=== PATIENT | male | born 1980 | race Caucasian/White ===

== ENCOUNTER 2016-09-05 | Outpatient (CLI) | payer MEDICAID, OTHER | END 2016-09-05 13:30 | disposition home or self-care (01) | DX: I49.8 Other specified cardiac arrhythmias (principal) ==

== ENCOUNTER 2017-07-17 17:37 | Outpatient (CLI) | payer OTHER ==
[2017-07-17 13:47] LABS: HEMOGLOBIN A1C 0.75 g/dL
== END 2017-07-17 17:38 | disposition home or self-care (01) ==
LOC: LAB.N 17:37
PROVIDERS: ATTEND Nurse Practitioner Gerontology
DX: R73.9 Hyperglycemia, unspecified (principal); E87.6 Hypokalemia
CPT/HCPCS: 36415; 83036; 84132

== ENCOUNTER 2017-11-16 23:42 | Outpatient (CLI) | payer OTHER ==
[2017-11-16 19:28] LABS: HB2 TOTAL 16.5 g/dL; HEMOGLOBIN A1C 0.71 g/dL; HEMOGLOBIN A1C % 6.1 % (4.6-6.2)
== END 2017-11-16 23:43 | disposition home or self-care (01) ==
LOC: LAB.N 23:42
PROVIDERS: ATTEND Nurse Practitioner Gerontology
DX: R73.9 Hyperglycemia, unspecified (principal)
CPT/HCPCS: 36415; 83036

== ENCOUNTER 2019-09-29 11:06 | Outpatient (CLI) | payer OTHER ==
[2019-09-29 18:41] LABS: BASOPHILS # (AUTO) 0.1 10^3/uL (0.0-0.1); BASOPHILS % (AUTO) 1.1 %; EOSINOPHILS # (AUTO) 0.1 10^3/uL (0.0-0.7); EOSINOPHILS % (AUTO) 0.8 %; HGB - HEMOGLOBIN 15.9 g/dL (14.0-18.0); LYMPHOCYTES # (AUTO) 2.4 10^3/uL (1.5-3.5); MEAN CORPUSCULAR HEMOGLOBIN 30.6 pg (27.0-31.0); MEAN CORPUSCULAR HGB CONC 33.8 g/dL (32.0-36.0); MEAN CORPUSCULAR VOLUME 90.6 fL (80.0-94.0); MEAN PLATELET VOLUME 9.9 fL (7.4-11.4); MONOCYTES # (AUTO) 0.4 10^3/uL (0.0-1.0); MONOCYTES % (AUTO) 6.2 %; NEUTROPHILS # (AUTO) 4.1 10^3/uL (1.5-6.6); NEUTROPHILS % (AUTO) 57.6 %; PLT - PLATELET COUNT 247 10^3/uL (130-450); RED BLOOD COUNT 5.19 10^6/uL (4.70-6.10); RED CELL DISTRIBUTION WIDTH 12.6 % (12.0-15.0); WHITE BLOOD COUNT 7.1 x10^3/uL (4.8-10.8)
[2019-09-29 19:14] LABS: ALBUMIN 4.5 g/dL (3.2-5.5); ALBUMIN/GLOBULIN RATIO 1.4 (1.0-2.2); ALKALINE PHOSPHATASE 58 IU/L (42-121); ALT ALANINE AMINOTRANSFERASE 30 IU/L (10-60); AST ASPARTATE AMINOTRANSFERASE 26 IU/L (10-42); BILIRUBIN,TOTAL 0.9 mg/dL (0.2-1.0); BUN - BLOOD UREA NITROGEN 19 mg/dL (6-20); CALCIUM 9.4 mg/dL (8.5-10.3); CARBON DIOXIDE - CO2 30 mmol/L (21-32); CHLORIDE 96 mmol/L (101-111); CHOL/HDL RATIO 5.9 (<5.0); CHOLESTEROL 261 mg/dL; CREATININE 1.1 mg/dL (0.6-1.2); GFR - MDRD 75 (>89); GLUCOSE 158 mg/dL (70-100); HDL CHOLESTEROL 44 mg/dL; LDL CHOLESTEROL,CALCULATED 183 mg/dL; LDL/HDL RATIO 4.2 (<3.6); SODIUM 138 mmol/L (135-145); TOTAL PROTEIN 7.7 g/dL (6.7-8.2); VLDL CHOLESTEROL 34 mg/dL
[2019-09-29 19:31] LABS: HB2 TOTAL 16.5 g/dL; HEMOGLOBIN A1C 0.8 g/dL; HEMOGLOBIN A1C % 6.6 % (4.6-6.2)
== END 2019-09-29 23:59 | disposition home or self-care (01) ==
LOC: LAB.N 11:06
PROVIDERS: ATTEND Nurse Practitioner Gerontology
DX: E87.6 Hypokalemia (principal); I10 Essential (primary) hypertension; R73.9 Hyperglycemia, unspecified
CPT/HCPCS: 36415; 80053; 80061; 83036; 83721; 85025

== ENCOUNTER 2019-11-15 08:00 | Outpatient (CLI) | payer OTHER | END 2019-11-15 23:59 | disposition home or self-care (01) | LOC: LAB.N 08:00 | PROVIDERS: ATTEND Nurse Practitioner Gerontology | DX: R35.0 Frequency of micturition (principal); R35.1 Nocturia | CPT/HCPCS: 36415; 84153 ==

== ENCOUNTER 2021-02-14 08:00 | Outpatient (CLI) | payer BC, OTHER ==
[2021-02-14 17:52] LABS: BASOPHILS # (AUTO) 0.1 10^3/uL (0.0-0.1); BASOPHILS % (AUTO) 0.7 %; EOSINOPHILS # (AUTO) 0.1 10^3/uL (0.0-0.7); EOSINOPHILS % (AUTO) 0.9 %; HCT - HEMATOCRIT 46.7 % (42.0-52.0); HGB - HEMOGLOBIN 15.3 g/dL (14.0-18.0); LYMPHOCYTES # (AUTO) 2.8 10^3/uL (1.5-3.5); LYMPHOCYTES % (AUTO) 35.9 %; MEAN CORPUSCULAR HEMOGLOBIN 31.2 pg (27.0-31.0); MEAN CORPUSCULAR HGB CONC 32.8 g/dL (32.0-36.0); MEAN CORPUSCULAR VOLUME 95.1 fL (80.0-94.0); MEAN PLATELET VOLUME 10.2 fL (7.4-11.4); MONOCYTES # (AUTO) 0.4 10^3/uL (0.0-1.0); MONOCYTES % (AUTO) 5.7 %; NEUTROPHILS # (AUTO) 4.3 10^3/uL (1.5-6.6); NEUTROPHILS % (AUTO) 56.4 %; PLT - PLATELET COUNT 244 10^3/uL (130-450); RED BLOOD COUNT 4.91 10^6/uL (4.70-6.10); RED CELL DISTRIBUTION WIDTH 12.8 % (12.0-15.0); WHITE BLOOD COUNT 7.7 x10^3/uL (4.8-10.8)
[2021-02-14 18:11] LABS: ALBUMIN 4.5 g/dL (3.2-5.5); ALBUMIN/GLOBULIN RATIO 1.4 (1.0-2.2); ALKALINE PHOSPHATASE 65 IU/L (42-121); ALT ALANINE AMINOTRANSFERASE 29 IU/L (10-60); AST ASPARTATE AMINOTRANSFERASE 23 IU/L (10-42); BILIRUBIN,TOTAL 0.8 mg/dL (0.2-1.0); BUN - BLOOD UREA NITROGEN 15 mg/dL (6-20); CALCIUM 9.4 mg/dL (8.5-10.3); CARBON DIOXIDE - CO2 30 mmol/L (21-32); CHLORIDE 99 mmol/L (101-111); CHOL/HDL RATIO 5.5 (<5.0); CHOLESTEROL 278 mg/dL; CREATININE 0.9 mg/dL (0.6-1.2); GFR - MDRD 94 (>89); GLUCOSE 146 mg/dL (70-100); HDL CHOLESTEROL 51 mg/dL; LDL CHOLESTEROL,CALCULATED 178 mg/dL; LDL/HDL RATIO 3.5 (<3.6); SODIUM 138 mmol/L (135-145); TOTAL PROTEIN 7.8 g/dL (6.7-8.2); TRIGLYCERIDES 244 mg/dL; VLDL CHOLESTEROL 49 mg/dL
== END 2021-02-14 23:59 | disposition home or self-care (01) ==
LOC: LAB.WCP 08:00
PROVIDERS: ATTEND Family Medicine
DX: E87.6 Hypokalemia (principal); I10 Essential (primary) hypertension
CPT/HCPCS: 36415; 80053; 80061; 83721; 85025

== ENCOUNTER 2021-12-19 08:00 | Outpatient (CLI) | payer BC ==
[2021-12-19 11:12] LABS: BASOPHILS # (AUTO) 0.1 10^3/uL (0.0-0.1); BASOPHILS % (AUTO) 0.7 %; EOSINOPHILS # (AUTO) 0.1 10^3/uL (0.0-0.7); EOSINOPHILS % (AUTO) 0.7 %; HCT - HEMATOCRIT 46.5 % (42.0-52.0); HGB - HEMOGLOBIN 16.2 g/dL (14.0-18.0); LYMPHOCYTES # (AUTO) 3.1 10^3/uL (1.5-3.5); LYMPHOCYTES % (AUTO) 40.8 %; MEAN CORPUSCULAR HEMOGLOBIN 31.9 pg (27.0-31.0); MEAN CORPUSCULAR HGB CONC 34.8 g/dL (32.0-36.0); MEAN CORPUSCULAR VOLUME 91.5 fL (80.0-94.0); MEAN PLATELET VOLUME 9.4 fL (7.4-11.4); MONOCYTES # (AUTO) 0.5 10^3/uL (0.0-1.0); MONOCYTES % (AUTO) 6.1 %; NEUTROPHILS # (AUTO) 3.9 10^3/uL (1.5-6.6); NEUTROPHILS % (AUTO) 51.3 %; PLT - PLATELET COUNT 268 10^3/uL (130-450); RED BLOOD COUNT 5.08 10^6/uL (4.70-6.10); RED CELL DISTRIBUTION WIDTH 12.7 % (12.0-15.0); WHITE BLOOD COUNT 7.7 x10^3/uL (4.8-10.8)
[2021-12-19 11:36] LABS: ALBUMIN 4.5 g/dL (3.2-5.5); ALBUMIN/GLOBULIN RATIO 1.3 (1.0-2.2); ALKALINE PHOSPHATASE 64 IU/L (42-121); ALT ALANINE AMINOTRANSFERASE 32 IU/L (10-60); AST ASPARTATE AMINOTRANSFERASE 25 IU/L (10-42); BILIRUBIN,TOTAL 0.9 mg/dL (0.2-1.0); BUN - BLOOD UREA NITROGEN 17 mg/dL (6-20); CALCIUM 9.2 mg/dL (8.5-10.3); CARBON DIOXIDE - CO2 30 mmol/L (21-32); CHLORIDE 97 mmol/L (101-111); CHOL/HDL RATIO 6.2 (<5.0); CHOLESTEROL 259 mg/dL; GFR - MDRD 83 (>89); GLUCOSE 167 mg/dL (70-100); HDL CHOLESTEROL 42 mg/dL; LDL CHOLESTEROL,CALCULATED 190 mg/dL; LDL/HDL RATIO 4.5 (<3.6); POTASSIUM 3.5 mmol/L (3.5-5.0); SODIUM 137 mmol/L (135-145); TOTAL PROTEIN 7.9 g/dL (6.7-8.2); TRIGLYCERIDES 135 mg/dL; VLDL CHOLESTEROL 27 mg/dL
[2021-12-19 11:47] LABS: THYROID STIMULATING HORMONE 0.94 uIU/mL (0.34-5.60)
== END 2021-12-20 12:54 | disposition home or self-care (01) ==
LOC: LAB 08:00
PROVIDERS: ATTEND Family Medicine
DX: I10 Essential (primary) hypertension (principal); E78.5 Hyperlipidemia, unspecified
CPT/HCPCS: 36415; 80053; 80061; 83721; 84443; 85025

== ENCOUNTER 2021-12-28 09:36 | Outpatient (CLI) | payer BC ==
[2021-12-28 09:58] LABS: CALCIUM 9.4 mg/dL (8.5-10.3); CREATININE 0.9 mg/dL (0.6-1.2); POTASSIUM 3.4 mmol/L (3.5-5.0)
[2021-12-28 13:11] LABS: ESTIMATED AVERAGE GLUCOSE 183 mg/dL (70-100)
== END 2021-12-28 09:37 | disposition home or self-care (01) ==
LOC: LAB 09:36
PROVIDERS: ATTEND Physician Assistant
DX: R73.01 Impaired fasting glucose (principal)
CPT/HCPCS: 36415; 80048; 83036

== ENCOUNTER 2022-01-21 17:00 | Outpatient (CLI) | payer BC ==
--- NOTE | 2022-01-22 16:53 | Ultrasound Report ---
PROCEDURE: Abdomen Limited INDICATIONS: UMBILICAL HERNIA TECHNIQUE: Real-time focused scanning was performed of the abdomen, with image documentation. COMPARISON: No pertinent prior study. FINDINGS: There is a partially reducible fat-containing umbilical hernia with a fascial defect measu ring approximately 1.3 cm. The hernia sac measures up to 2.1 cm. IMPRESSION: Partially reducible fat-containing periumbilical hernia with fascial defect measuring 1.3 cm. Reviewed by: Jey Xiong MD on 01/22/2022 4:52 PM PDT Approved by: Jey Xiong MD on 01/22/2022 4:52 PM PDT Station ID: [id number]
== END 2022-01-21 17:01 | disposition home or self-care (01) ==
LOC: DI 17:00
PROVIDERS: ATTEND Physician Assistant
DX: K42.9 Umbilical hernia without obstruction or gangrene (principal)

== ENCOUNTER 2022-05-22 08:24 | Day surgery (SDC) | payer BC ==
[2022-05-22] MEDS ORDERED: CEFAZOLIN 2G/50ML 0.9% NS 2 GM/50 ML BAG IV ONE (08:56)
[2022-05-22] MEDS ORDERED: LACTATED RINGERS 1,000 ML IV ONE ×2 (09:10→11:58)
--- NOTE | 2022-05-22 09:33 | ANESTHESIA ---
Pre-Anesthesia VS, & Labs - Diagnosis umbilical hernia - Procedure umbilical hernia repair Vital Signs: Temp Pulse Resp BP Pulse Ox O2 Flow Rate 36.2 C L 86 16 134/84 H 97 05/22/22 08:40 05/22/22 08:40 05/22/22 08:40 05/22/22 08:40 05/22/22 08:40 Height: 6 ft Weight (kg): 109.5 kg Body Mass Index: 32.7 BMI Classification: Obese - NPO >8 hours - Lab Results Current Lab Results: Laboratory Tests 05/22/22 08:47: POC Whole Bld Glucose 162 H Home Medications and Allergies Home Medications: Ambulatory Orders Propranolol [Inderal] 10 mg PO BID PRN 05/16/22 metFORMIN [Glucophage] 500 mg PO BIDWM 05/16/22 Chlorthalidone 25 mg PO DAILY 02/03/15 Sertraline [Zoloft] 100 mg PO DAILY 02/03/15 LORazepam [Ativan] 0.5 - 1 mg PO ONCE PRN 10/02/15 Propranolol [Inderal] 10 mg PO BID PRN 05/16/22 metFORMIN [Glucophage] 500 mg PO BIDWM 05/16/22 Allergies/Adverse Reactions: Allergies Allergy/AdvReac Type Severity Reaction Status Date / Time No Known Drug Allergies Allergy Verified 01/03/14 08:14 Anes History & Medical History - Anesthetic History Anesthesia Complications: reports: No previous complications Family history of Anesthesia Complications: Denies Family history of Malignant Hyperthermia: Denies - Medical History Cardiovascular: reports: Hypertension, High cholesterol Pulmonary: reports: None Gastrointestinal: reports: Hemorrhoids Urinary: reports: None Musculoskeletal: reports: None Endocrine/Autoimmune: reports: Type 2 diabetes Skin: reports: None Smoking Status: Never smoker Exam General: Alert, Oriented x3, Cooperative Dental: WNL Mouth Openin Fingerbreadth Neck Mobility: Normal Mallampati classification: II Thyromental Distance: 4-6 cm Respiratory: Lungs clear Cardiovascular: Regular rate Plan Anesthesia Type: General Consent for Procedure(s) Verified and Reviewed: Yes Code Status: Attempt Resuscitation ASA classification: 2-Mild systemic disease Is this case an emergency?: No
[2022-05-22] MEDS ORDERED: BUPIVACAINE 0.25% PF 10 ML VIAL ONE ×2 (09:48)
[2022-05-22] MEDS ORDERED: SUGAMMADEX 200 MG/2 ML VIAL IVP ONE (09:56)
[2022-05-22] MEDS ORDERED: ROCURONIUM 50 MG/5 ML VIAL ONE (09:56)
[2022-05-22] MEDS ORDERED: ONDANSETRON 4 MG/2 ML VIAL ONE (09:56)
[2022-05-22] MEDS ORDERED: KETOROLAC 30 MG/ML VIAL ONE (09:56)
--- NOTE | 2022-05-22 10:10 | HISTORY & PHYSICAL EXAMINATION ---
Chief Complaint - Chief Complaint Chief Complaint: umbilical hernia History of Present Illness - History Obtained From Records Reviewed: yes History obtained from: pt Exam Limitations: none - History of Present Illness HPI Comment/Other: umbilical hernia. getting bigger and more painful History - Past Medical History Cardiovascular: reports: Hypertension, High cholesterol Respiratory: reports: None Endocrine/Autoimmune: reports: Type 2 diabetes GI: reports: Hemorrhoids : reports: None HEENT: reports: Chronic vision loss, Chronic hearing loss Psych: reports: Depression, Anxiety, Panic attacks, Post traumatic stress disorder Musculoskeletal: reports: None Derm: reports: None MRSA Hx?: No - POLST Patient has POLST: No Meds/Allgy - Home Medications Home Medications: Ambulatory Orders Medication Instructions Recorded Confirmed Chlorthalidone 25 mg PO DAILY 02/03/15 05/16/22 Sertraline [Zoloft] 100 mg PO DAILY 02/03/15 05/16/22 LORazepam [Ativan] 0.5 - 1 mg PO ONCE PRN 10/02/15 05/16/22 Propranolol [Inderal] 10 mg PO BID PRN 05/16/22 05/16/22 metFORMIN [Glucophage] 500 mg PO BIDWM 05/16/22 05/16/22 - Allergies Allergies/Adverse Reactions: Allergies Allergy/AdvReac Type Severity Reaction Status Date / Time No Known Drug Allergies Allergy Verified 01/03/14 08:14 Review of Systems - Other Findings Other Findings: 10 pt ros as above otherwise unremarkable Exam - Vital Signs Reviewed Vital Signs: Yes Vital Signs: Vital Signs x48h Temp Pulse Resp BP Pulse Ox 05/22/22 08:40 36.2 C L 86 16 134/84 H 97 - Physical Exam General Appearance: positive: No acute distress, Alert Eyes Bilateral: positive: PERRL, EOMI ENT: positive: No signs of dehydration Neck: positive: No JVD Respiratory: positive: Breath sounds nml Cardiovascular: positive: Regular rate & rhythm Abdomen: positive: Non-tender, Other (3 cm umbilical hernia) Neurologic/Psychiatric: positive: Oriented x3 Conclusion/Plan - Problem List (1) Umbilical hernia Conclusion/Plan: plan open repair with mesh. parq held and consent obtained
[2022-05-22] MEDS ORDERED: MIDAZOLAM 2 MG/2 ML VIAL ONE (10:22)
[2022-05-22] MEDS ORDERED: fentaNYL 100 MCG/2 ML VIAL ONE (10:22)
[2022-05-22] MEDS ORDERED: BUPIVACAINE 0.25% PF 30 ML VIAL SUBQ ONE (10:54)
[2022-05-22] MEDS ORDERED: DEXAMETHASONE 4 MG/ML VIAL ONE (11:01)
[2022-05-22] MEDS ORDERED: PROPOFOL 200 MG/20 ML VIAL IVP ONE (11:45)
[2022-05-22] MEDS ORDERED: HYDROcod/ACETAM 5/325 MG TABLET PO PRN (12:00)
--- NOTE | 2022-05-22 12:06 | OPERATIVE REPORT ---
Operative Report - General Procedure Date: 05/22/22 Planned Procedure: open umbilical hernia repair with mesh Pre-Op Diagnosis: umbilical hernia Procedure Performed: open umbilical hernia repair with mesh Post Op Diagnosis: umbilical hernia - Procedure Note Primary Surgeon: irena weber Anesthesia Technique: General ET tube, Local Pathology: none Estimated Blood Loss (mL): 2 Drain/Tube Type: Other (none) Indications: painful hernia bulge Findings: 2.5 cm hernia Complications: none - Other Other Information/Narrative: The patient was properly identified brought to the operating room and placed in supine position. Sequential compression devices were placed. General anesthesia was induced. The patient was prepped and draped in a sterile fashion and given preoperative antibiotics. Local anesthetic was given throughout the procedure. An infraumbilical incision was made. Dissection proceeded sharply. Subcutaneous tissue was mobilized away from the fascial defect by 2 to 3 cm in all directions. Umbilical skin was sharply excised away from the hernia sac or peritoneum. The peritoneum was then carefully released from the fascial defect edge with cutting current cautery. A preperitoneal space was developed for mesh placement. Polypropylene mesh was cut to size approximately 1.5 x 2.5 inches and placed preperitoneal. The mesh was secured with 9 interrupted 0 Ethibond sutures. The mesh lay in good position without tension. fascia was closed over the mesh with O ethibond. Subcutaneous tissue was reapproximated with interrupted 2-0 Vicryl suture. Umbilical skin was tacked back down to fascia with interrupted 2-0 Vicryl suture. Buried interrupted subdermal 3-0 Vicryl sutures were then placed. Skin was closed with a running 4-0 Monocryl subcuticular suture. Dressing was applied. Patient tolerated the procedure the procedure well was awakened and brought to recovery in good condition.
[2022-05-22] MEDS ORDERED: ePHEDrine 50 MG/ML VIAL IVP PRN (12:15)
[2022-05-22] MEDS ORDERED: fentaNYL 100 MCG/2 ML VIAL IVP PRN (12:15)
[2022-05-22] MEDS ORDERED: ONDANSETRON 4 MG/2 ML VIAL IVP PRN (12:15)
[2022-05-22] MEDS ORDERED: ATROPINE ABBOJECT 1 MG/10 ML SYRINGE IVP PRN (12:15)
[2022-05-22] MEDS ORDERED: HYDROmorphone 0.5 MG/0.5 ML SYRINGE IVP PRN (12:15)
[2022-05-22] MEDS ORDERED: NALOXONE 0.4 MG/ML VIAL IVP PRN (12:15)
[2022-05-22] MEDS ORDERED: MORPHINE 2 MG/ML CARPUJECT IVP PRN (12:15)
[2022-05-22 12:43] VITALS: BP 141/81
[2022-05-22] MEDS ORDERED: HYDROcod/ACETAM 5/325 MG TABLET ONE (12:54)
[2022-05-22] MEDS ORDERED: LACTATED RINGERS 1,000 ML IV SCH (13:00)
--- NOTE | 2022-05-22 13:26 | ANESTHESIA POST OP EVALUATION ---
Anesthesia Post Eval - Post Anesthesia Eval Vitals: Last Vital Signs Temp 36.8 C 05/22/22 12:42 Pulse 70 05/22/22 12:42 Resp 10 L 05/22/22 12:42 BP 141/81 H 05/22/22 12:42 Pulse Ox 95 05/22/22 12:42 O2 Flow Rate CV Function Including HR & BP: Stable Pain Control: Satisfactory Nausea & Vomiting: Negative Mental Status: Baseline Respiratory Status: Airway Patent Hydration Status: Satisfactory Anesthesia Complications: None
== END 2022-05-22 08:25 | disposition home or self-care (01) ==
LOC: SDS 08:24
PROVIDERS: ATTEND Surgery
DX: K42.9 Umbilical hernia without obstruction or gangrene (principal); E11.9 Type 2 diabetes mellitus without complications; E66.9 Obesity, unspecified; Z68.32 Body mass index [BMI] 32.0-32.9, adult; Z79.84 Long term (current) use of oral hypoglycemic drugs; I10 Essential (primary) hypertension; F41.9 Anxiety disorder, unspecified
CPT/HCPCS: 49585; A9270; C1781; J0690; J7120

== ENCOUNTER 2023-04-17 08:42 | Outpatient (CLI) | payer BC ==
[2023-04-17 09:19] LABS: BASOPHILS # (AUTO) 0.1 10^3/uL (0.0-0.1); BASOPHILS % (AUTO) 0.7 %; EOSINOPHILS # (AUTO) 0.1 10^3/uL (0.0-0.7); EOSINOPHILS % (AUTO) 1.8 %; HCT - HEMATOCRIT 44.4 % (42.0-52.0); LYMPHOCYTES # (AUTO) 1.9 10^3/uL (1.5-3.5); LYMPHOCYTES % (AUTO) 26.2 %; MEAN CORPUSCULAR HEMOGLOBIN 31.4 pg (27.0-31.0); MEAN CORPUSCULAR HGB CONC 33.8 g/dL (32.0-36.0); MEAN CORPUSCULAR VOLUME 92.9 fL (80.0-94.0); MEAN PLATELET VOLUME 9.3 fL (7.4-11.4); MONOCYTES # (AUTO) 0.6 10^3/uL (0.0-1.0); MONOCYTES % (AUTO) 8.4 %; NEUTROPHILS # (AUTO) 4.6 10^3/uL (1.5-6.6); NEUTROPHILS % (AUTO) 62.6 %; PLT - PLATELET COUNT 218 10^3/uL (130-450); RED BLOOD COUNT 4.78 10^6/uL (4.70-6.10); RED CELL DISTRIBUTION WIDTH 12.3 % (12.0-15.0); WHITE BLOOD COUNT 7.3 x10^3/uL (4.8-10.8)
[2023-04-17 09:38] LABS: ALBUMIN 4.2 g/dL (3.2-5.5); ALBUMIN/GLOBULIN RATIO 1.6 (1.0-2.2); ALKALINE PHOSPHATASE 76 IU/L (42-121); ALT ALANINE AMINOTRANSFERASE 14 IU/L (10-60); AST ASPARTATE AMINOTRANSFERASE 14 IU/L (10-42); BILIRUBIN,TOTAL 0.5 mg/dL (0.2-1.0); BUN - BLOOD UREA NITROGEN 13 mg/dL (6-20); CALCIUM 9.3 mg/dL (8.5-10.3); CARBON DIOXIDE - CO2 32 mmol/L (21-32); CHLORIDE 101 mmol/L (101-111); CHOL/HDL RATIO 5.4 (<5.0); CHOLESTEROL 226 mg/dL; CREATININE 0.9 mg/dL (0.6-1.3); GFR - MDRD 93 (>89); GLUCOSE 174 mg/dL (74-104); HDL CHOLESTEROL 42 mg/dL; LDL CHOLESTEROL,CALCULATED 148 mg/dL; LDL/HDL RATIO 3.5 (<3.6); POTASSIUM 3.6 mmol/L (3.5-4.5); SODIUM 137 mmol/L (135-145); TOTAL PROTEIN 6.9 g/dL (6.4-8.9); TRIGLYCERIDES 178 mg/dL (48-352); VLDL CHOLESTEROL 36 mg/dL
[2023-04-17 09:41] LABS: CREATININE,URINE 131.8 mg/dL; MICROALBUM/CREATININE RATIO,UR 5.3 ug/mg (<30.0); MICROALBUMIN,URINE 0.7 mg/dL
[2023-04-17 09:53] LABS: THYROID STIMULATING HORMONE 1.44 uIU/mL (0.34-5.60)
[2023-04-17 11:24] LABS: ESTIMATED AVERAGE GLUCOSE 177 mg/dL (70-100); HEMOGLOBIN A1c% 7.8 % (4.27-6.07)
== END 2023-04-17 08:43 | disposition home or self-care (01) ==
LOC: LAB 08:42
PROVIDERS: ATTEND Physician Assistant
DX: E11.9 Type 2 diabetes mellitus without complications (principal); E78.5 Hyperlipidemia, unspecified
CPT/HCPCS: 36415; 80053; 80061; 82043; 82570; 83036; 83721; 84443; 85025

== ENCOUNTER 2023-08-06 06:35 | Outpatient (CLI) | payer BC ==
[2023-08-06 07:08] LABS: CALCIUM 9.7 mg/dL (8.5-10.3); CREATININE 0.9 mg/dL (0.6-1.3); POTASSIUM 3.8 mmol/L (3.5-4.5)
[2023-08-06 08:12] LABS: ESTIMATED AVERAGE GLUCOSE 183 mg/dL (70-100)
== END 2023-08-06 06:36 | disposition home or self-care (01) ==
LOC: LAB 06:35
PROVIDERS: ATTEND Physician Assistant
DX: E11.9 Type 2 diabetes mellitus without complications (principal)
CPT/HCPCS: 36415; 80048; 83036

== ENCOUNTER 2023-11-06 06:10 | Outpatient (CLI) | payer BC ==
[2023-11-06 06:37] LABS: CREATININE,URINE 234.6 mg/dL; MICROALBUMIN,URINE 2.1 mg/dL
[2023-11-06 06:41] LABS: BUN - BLOOD UREA NITROGEN 14 mg/dL (6-20); CALCIUM 9.6 mg/dL (8.5-10.3); CARBON DIOXIDE - CO2 33 mmol/L (21-32); CHLORIDE 99 mmol/L (101-111); CHOL/HDL RATIO 5.2 (<5.0); CHOLESTEROL 254 mg/dL; GFR - MDRD 82 (>89); GLUCOSE 202 mg/dL (74-104); HDL CHOLESTEROL 49 mg/dL; LDL CHOLESTEROL,CALCULATED 177 mg/dL; LDL/HDL RATIO 3.6 (<3.6); POTASSIUM 3.4 mmol/L (3.5-4.5); SODIUM 138 mmol/L (135-145); TRIGLYCERIDES 142 mg/dL (48-352); VLDL CHOLESTEROL 28 mg/dL
[2023-11-06 10:28] LABS: ESTIMATED AVERAGE GLUCOSE 189 mg/dL (70-100); HEMOGLOBIN A1c% 8.2 % (4.27-6.07)
== END 2023-11-06 06:11 | disposition home or self-care (01) ==
LOC: LAB 06:10
PROVIDERS: ATTEND Physician Assistant
DX: E11.65 Type 2 diabetes mellitus with hyperglycemia (principal)
CPT/HCPCS: 36415; 80048; 80061; 82043; 82570; 83036; 83721

== ENCOUNTER 2024-03-18 11:17 | Outpatient (CLI) | payer OTHER ==
[2024-03-18 11:51] LABS: BUN - BLOOD UREA NITROGEN 13 mg/dL (6-20); CALCIUM 9.8 mg/dL (8.5-10.3); CARBON DIOXIDE - CO2 32 mmol/L (21-32); CHLORIDE 99 mmol/L (101-111); CHOL/HDL RATIO 4.9 (<5.0); CHOLESTEROL 241 mg/dL; CREATININE 0.9 mg/dL (0.6-1.3); GFR - MDRD 93 (>89); GLUCOSE 159 mg/dL (74-104); HDL CHOLESTEROL 49 mg/dL; LDL CHOLESTEROL,CALCULATED 163 mg/dL; LDL/HDL RATIO 3.3 (<3.6); POTASSIUM 3.6 mmol/L (3.5-4.5); SODIUM 137 mmol/L (135-145); TRIGLYCERIDES 143 mg/dL; VLDL CHOLESTEROL 29 mg/dL
[2024-03-18 12:58] LABS: ESTIMATED AVERAGE GLUCOSE 174 mg/dL (70-100); HEMOGLOBIN A1c% 7.7 % (4.27-6.07)
== END 2024-03-18 11:18 | disposition home or self-care (01) ==
LOC: LAB 11:17
PROVIDERS: ATTEND Physician Assistant
DX: E11.65 Type 2 diabetes mellitus with hyperglycemia (principal); E78.5 Hyperlipidemia, unspecified
CPT/HCPCS: 36415; 80048; 80061; 83036; 83721